=== PATIENT | female | born 1990 | race African-American/Black ===

== ENCOUNTER 2017-05-05 08:28 | Emergency (ER) | payer OTHER ==
[~2017-05-05] VITALS: Ht 160 cm; Wt 78.9 kg
[~2017-05-05 08:28] MED LIST: CIPROFLOXACIN500 M1 PO; FERRO-TIME325 MG PO; FLOMAX0.4 MG PO; FLOVENT HFA 2220 MCG INH; MACROBID 100 M100 M1 PO; NORCO 5-325 TA1 EACH PO; PENICILLIN VK500 M1 PO; PEPCID20 MG PO; PHENERGAN 25 MG25 M1 PO; PRILOSEC 20 MG20 MG PO; TRINATE TABLET1 TAB PO; VENTOLIN HFA 1818 GM INH; ZOFRAN ODT4 MG PO; ZOFRAN4 MG PO; ZPAK PO
[2017-05-05] MEDS ORDERED: AMOXICILLIN 50500 MG PO (08:57)
[2017-05-05] MEDS ORDERED: FLAGYL500 MG PO (08:57)
[2017-05-05] MEDS ORDERED: IRON325 PO (08:58)
[2017-05-05 11:11] LABS: URINE BILIRUBIN NEGATIVE (Negative); URINE BLOOD TRACE (Negative); URINE CLARITY CLEAR; URINE COLOR YELLOW; URINE GLUCOSE-RANDOM* NEGATIVE (Negative); URINE KETONES NEGATIVE (Negative); URINE LEUKOCYTES NEGATIVE (Negative); URINE NITRITE NEGATIVE (Negative); URINE PROTEIN (DIPSTICK) NEGATIVE (Negative); URINE SPECIFIC GRAVITY 1.025 (1.005-1.035); URINE UROBILINOGEN 0.2 E.U./dl (0.2-1.0)
[2017-05-05 11:13] LABS: ABSOLUTE NEUTROPHILS 6.7 thou/uL (1.4-8.2); EOSINOPHILS 1.1 % (0.0-3.0); HEMATOCRIT 35.1 % (37.0-47.0); HEMOGLOBIN 12.3 gm/dL (12.0-15.0); LYMPHOCYTES 27.7 % (24.0-44.0); MCH 31.7 pg (26.0-34.0); MCV 90.4 fL (80.0-100.0); PLATELET COUNT 303 thou/uL (150-400); POLYS 65.2 % (36.0-66.0); RBC 3.89 mil/uL (4.20-5.00); RDW 12.8 % (10.5-14.5); WBC 10.3 thou/uL (4.0-11.0)
[2017-05-05 11:21] LABS: CALCIUM 8.9 mg/dL (8.5-10.1); CREATININE 0.5 mg/dL (0.6-1.0); POTASSIUM 3.8 mmol/L (3.5-5.1)
[2017-05-05 12:14] LABS: CALCIUM 8.9 mg/dL (8.5-10.1); CREATININE 0.4 mg/dL (0.6-1.0); POTASSIUM 3.8 mmol/L (3.5-5.1)
[2017-05-05 12:20] LABS: ALBUMIN 3.2 g/dL (3.4-5.0); TOTAL BILIRUBIN 0.2 mg/dL (<0.1-1.0); TOTAL PROTEIN 6.4 g/dL (6.4-8.2)
[2017-05-05] MEDS ORDERED: UNISOM25 MG PO (13:17)
== END 2017-05-05 13:26 | disposition home or self-care (01) ==
LOC: ER 08:28
PROVIDERS: Nurse Practitioner Family
DX: O26.891 Other specified pregnancy related conditions, first trimester (principal); R10.2 Pelvic and perineal pain; J45.909 Unspecified asthma, uncomplicated; Z3A.10 10 weeks gestation of pregnancy

== ENCOUNTER 2017-09-29 08:11 | Emergency (ER) | payer OTHER ==
[~2017-09-29] VITALS: Ht 157.5 cm; Wt 96.2 kg
[~2017-09-29 08:11] MED LIST changes: +AMOXICILLIN 50500 MG PO; +FLAGYL500 MG PO; +IRON325 PO; +UNISOM25 MG PO
[2017-09-29 08:45] LABS: URINE BILIRUBIN NEGATIVE (Negative); URINE BLOOD 1+ (Negative); URINE CLARITY CLEAR; URINE COLOR YELLOW; URINE GLUCOSE-RANDOM* NEGATIVE (Negative); URINE KETONES TRACE (Negative); URINE LEUKOCYTES NEGATIVE (Negative); URINE NITRITE NEGATIVE (Negative); URINE PROTEIN (DIPSTICK) NEGATIVE (Negative); URINE UROBILINOGEN 0.2 E.U./dl (0.2-1.0)
[2017-09-29] MEDS ORDERED: QVAR REDIHALE10.6 G1 INH (08:49)
[2017-09-29 08:57] LABS: SQUAMOUS 4-10 Moderate /LPF (0-3)
[2017-09-29 08:58] LABS: BACTERIA 1-9 Few /HPF (None Seen); CASTS None Seen /LPF (None Seen); CRYSTALS None Seen /LPF (None Seen); URINE RBC 3-10 Few /HPF (0-2); URINE WBC None Seen /HPF (0-5)
[2017-09-29 10:12] VITALS: BP 117/58
== END 2017-09-29 10:37 | disposition home or self-care (01) ==
LOC: ER 08:11
PROVIDERS: Emergency Medicine
DX: O9A.213 Injury, poisoning and certain other consequences of external causes complicating pregnancy, third trimester (principal); S63.615A Unspecified sprain of left ring finger, initial encounter; R10.2 Pelvic and perineal pain; K62.89 Other specified diseases of anus and rectum; J45.909 Unspecified asthma, uncomplicated; Z87.891 Personal history of nicotine dependence; Z3A.31 31 weeks gestation of pregnancy; W10.9XXA Fall (on) (from) unspecified stairs and steps, initial encounter; Y92.89 Other specified places as the place of occurrence of the external cause; Y93.89 Activity, other specified; Y99.8 Other external cause status